=== PATIENT | female | born 1970 | race Hispanic/Latino ===

== ENCOUNTER 2018-04-21 14:10 | Emergency (ER) | payer MEDICAID, OTHER ==
[2018-04-21] MEDS ORDERED: IBUPROFEN 400 MG TABLET ONE (14:18)
[2018-04-21 15:20] LABS: RAPID GROUP A STREP NEGATIVE (NEGATIVE)
== END 2018-04-21 15:37 | disposition home or self-care (01) ==
LOC: EDH 14:10
DX: J10.1 Influenza due to other identified influenza virus with other respiratory manifestations (principal); R50.9 Fever, unspecified; Z98.890 Other specified postprocedural states
CPT/HCPCS: 71045; 87804; 87880

== ENCOUNTER 2019-10-05 12:27 | Emergency (ER) | payer OTHER, SELFPAY ==
[2019-10-05] MEDS ORDERED: IBUPROFEN 600 MG TABLET ONE (13:57)
[2019-10-05 13:58] LABS: APPEARANCE,URINE Clear (CLEAR); BILIRUBIN,URINE Negative (NEGATIVE); COLOR,URINE Yellow (YELLOW); GLUCOSE, URINE (UA) Negative (NEGATIVE); KETONES,URINE 15 mg/dL (NEGATIVE); LEUKOCYTE ESTERASE ,URINE Negative (NEGATIVE); NITRATE,URINE Negative (NEGATIVE); OCCULT BLOOD,URINE Negative (NEGATIVE); PH,URINE 5.5 (5.0-8.0); PROTEIN,URINE Trace mg/dL (NEGATIVE)
[2019-10-05 14:01] LABS: BASOPHILS % (AUTO) 0.3 % (0.0-5.0); HEMATOCRIT 35.8 % (36-48); LYMPHOCYTES % (AUTO) 11.6 % (21.0-51.0); MEAN CORPUSCULAR HEMOGLOBIN 29.9 pg (27.0-33.0); MEAN CORPUSCULAR VOLUME 90.6 fL (79-99); MONOCYTES % (AUTO) 5.7 % (3.0-13.0); PLATELET COUNT (AUTO) 278 K/uL (130-400); RED BLOOD CELL COUNT(AUTO) 3.95 MIL/uL (4.00-5.50); RED CELL DISTRIBUTION WIDTH 14.2 % (11.0-15.5); WHITE BLOOD COUNT (AUTO) 6.9 K/uL (4.8-10.8)
[2019-10-05 14:02] LABS: HCG,QUAL RESULT NEGATIVE (NEGATIVE)
[2019-10-05 14:06] LABS: BACTERIA,URINE Rare /HPF (None Seen); MUCUS,URINE Moderate LPF (None Seen); RBC,URINE 0-1 /HPF (0-1); SQUAMOUS EPITHELIAL CELL,UR Few /HPF (0-2); WBC,URINE 0-1 /HPF (0-1)
[2019-10-05 14:06] LABS: CREATININE 0.9 mg/dL (0.5-1.5); POTASSIUM 3.3 mmol/L (3.5-5.1)
[2019-10-05 14:10] LABS: ALBUMIN 3.5 g/dL (3.5-5.0); BILIRUBIN,TOTAL 0.3 mg/dL (0.2-1.0); TOTAL PROTEIN, SERUM 8.1 g/dL (6.0-8.3)
[2019-10-18] MEDS ORDERED: DEXA6TAB PO (16:57)
[2019-10-18] MEDS ORDERED: APIX2.5T PO (16:57)
== END 2019-10-05 16:37 | disposition home or self-care (01) ==
LOC: EDH 12:27
DX: U07.1 COVID-19 (principal); R10.30 Lower abdominal pain, unspecified
CPT/HCPCS: 36415; 71045; 74176; 76856; 80053; 81001; 81025; 83690; 84484; 85025; 93005; 99285; U0003

== ENCOUNTER 2019-10-11 16:44 | Inpatient (IN) | payer OTHER, SELFPAY ==
[~2019-10-11] VITALS: Ht 152.4 cm; Wt 81.7 kg
[2019-10-11 17:20] LABS: BASOPHILS % (AUTO) 0.4 % (0.0-5.0); HEMATOCRIT 32.5 % (36-48); LYMPHOCYTES % (AUTO) 24.1 % (21.0-51.0); MEAN CORPUSCULAR HEMOGLOBIN 29.5 pg (27.0-33.0); MEAN CORPUSCULAR HGB CONC 33.5 g/dL (32.0-36.0); MEAN CORPUSCULAR VOLUME 88.1 fL (79-99); MONOCYTES % (AUTO) 6.1 % (3.0-13.0); NEUTROPHILS % (AUTO) 65.3 % (40.0-77.0); PLATELET COUNT (AUTO) 305 K/uL (130-400); RED BLOOD CELL COUNT(AUTO) 3.69 MIL/uL (4.00-5.50); RED CELL DISTRIBUTION WIDTH 14.1 % (11.0-15.5); WHITE BLOOD COUNT (AUTO) 5.1 K/uL (4.8-10.8)
[2019-10-11 17:34] LABS: INR 0.95 (0.85-1.15); PARTIAL THROMBOPLASTIN TIME 25.7 SEC (26.3-35.5); PROTHROMBIN TIME 10.3 SEC (9.6-11.6)
[2019-10-11 17:36] LABS: ALBUMIN 2.8 g/dL (3.5-5.0); BILIRUBIN,TOTAL 0.6 mg/dL (0.2-1.0); CREATININE 0.8 mg/dL (0.5-1.5); TOTAL PROTEIN, SERUM 7.4 g/dL (6.0-8.3)
[2019-10-11 17:46] LABS: B-TYPE NATRIURETIC PEPTIDE 5 pg/mL (0-100)
[2019-10-11] MEDS ORDERED: POTASSIUM BICARB/CIT AC 25 MEQ TABLET.EFF ONE (18:01)
[2019-10-11] MEDS ORDERED: POTASSIUM CHLORIDE 20 MEQ ERTAB PO ONE ×2 (18:10→23:16)
[2019-10-11] MEDS ORDERED: LEVOFLOXACIN 500 MG/D5W 100 ML 100 ML ONE (18:29)
[2019-10-11] MEDS ORDERED: ONDANSETRON HCL 4 MG/2 ML VIAL IV PRN (19:30)
[2019-10-11] MEDS ORDERED: ERGOCALCIFEROL (VITAMIN D2) 50,000 UNIT CAPSULE PO ONE (19:30)
[2019-10-11] MEDS ORDERED: CEFTRIAXONE SODIUM 1 GM IVP SCH (19:30)
[2019-10-11] MEDS ORDERED: DOXYCYCLINE 100MG+NS 250ML IV SCH (19:30)
[2019-10-11] MEDS ORDERED: LACTULOSE 20 GM/30 ML UDCUP PO PRN (19:30)
[2019-10-11] MEDS ORDERED: METHYLPREDNISOLONE SOD SUCC 40MG/ML 1ML ONE (19:53)
[2019-10-11] MEDS ORDERED: ERGOCALCIFEROL (VITAMIN D2) 50,000 UNIT CAPSULE ONE (19:53)
[2019-10-11] MEDS ORDERED: DOXYCYCLINE 100MG+NS 250ML 250 ML IV ONE (19:54)
[2019-10-11] MEDS ORDERED: CEFTRIAXONE SODIUM 1 GM ONE (19:54)
[2019-10-11] MEDS ORDERED: ACETYLCYSTEINE 600 MG CAPSULE ONE (19:54)
[2019-10-11] MEDS: METHYLPREDNISOLONE SOD SUCC 40MG/ML 1ML IVP SCH (21:00)
[2019-10-11] MEDS: ACETYLCYSTEINE 600 MG CAPSULE PO SCH (21:00)
[2019-10-12] VITALS (7 sets, daily range): BP systolic 133–170; BP diastolic 85–90
[2019-10-12] MEDS ORDERED: DOXY100T2 PO (07:02)
[2019-10-12] MEDS: ASCORBIC ACID 500 MG TAB PO SCH (08:13)
[2019-10-12] MEDS: ACETYLCYSTEINE 600 MG CAPSULE PO SCH ×2 (08:14→21:10)
[2019-10-12] MEDS: METHYLPREDNISOLONE SOD SUCC 40MG/ML 1ML IVP SCH ×3 (08:14→21:11)
[2019-10-12] MEDS: ENOXAPARIN SODIUM 40 MG/0.4 ML SYRINGE SQ SCH (08:15)
[2019-10-12] MEDS ORDERED: DOXYCYCLINE 100MG+NS 250ML IV SCH (09:00)
[2019-10-12] MEDS: CEFTRIAXONE SODIUM 1 GM IVP SCH ×2 (09:40→21:11)
[2019-10-12] MEDS: DOXYCYCLINE 100MG+NS 250ML 250 ML IV SCH ×2 (09:40→21:11)
--- NOTE | 2019-10-12 09:44 | NUR ---
CHART CHECK COMPLETED Pt IS A Y.O. FEMALE ADMITTED SECONDARY TO ACUTE HYPOXIC RESPIRATORY FAILURE DUE TO SARS . Pt HAS A PAST MEDICAL HISTORY SIGNIFICANT FOR . Pt CURRENTLY ON REGULAR TEXTURE,THIN LIQUID DIET (HEART HEALTHY). PLEASE REQUEST FORMAL SKILLED SPEECH/SWALLOW EVALUATION IF Pt PRESENTS WITH +S/S OF ASPIRATION SUCH COUGH RESPONSE, THROAT CLEAR, OR WET VOCAL QUALITY DURING P.O. Addendum: 10/12/19 at 0957 by RUPERT FORTUNE, [facility] Amended: Links added.
[2019-10-12] MEDS: ZINC SULFATE 220 CAPSULE PO SCH (11:46)
--- NOTE | 2019-10-12 13:21 | NUR ---
DC PLAN CALLED ROOM PATIENT IN COVID UNIT. NO ANSWER. CALLED NEXT OF KIN ON FACE SHEET SISTER LOYDA PATIENT LIVES WITH SPOUSE. INDEPENDENT USES A CANE EVERY SO OFTEN. GOES TO [facility] FOR MD AND MDS. FEELS PATIENT CAN RETURN HOME. SAID PATIENTS SON IS POSITIVE FOR COVID. DID NOT WANT TO GIVE SPOUSE PHONE NUMBER SAID SHE DOES HAVE IT IF NEEDED. . Addendum: 10/12/19 at 1328 by GOLD LONG RN CM Amended: Links added.
[2019-10-13 03:49] VITALS: BP 128/80
[2019-10-13 05:35] LABS: HEMATOCRIT 33.3 % (36-48); MEAN CORPUSCULAR HEMOGLOBIN 29.1 pg (27.0-33.0); MEAN CORPUSCULAR VOLUME 88.1 fL (79-99); RED BLOOD CELL COUNT(AUTO) 3.78 MIL/uL (4.00-5.50); RED CELL DISTRIBUTION WIDTH 13.7 % (11.0-15.5); WHITE BLOOD COUNT (AUTO) 9.6 K/uL (4.8-10.8)
[2019-10-13 05:50] LABS: CREATININE 0.9 mg/dL (0.5-1.5); POTASSIUM 3.8 mmol/L (3.5-5.1)
[2019-10-13 08:00] VITALS: BP 149/85
[2019-10-13] MEDS: ASCORBIC ACID 500 MG TAB PO SCH (08:54)
[2019-10-13] MEDS: CEFTRIAXONE SODIUM 1 GM IVP SCH ×2 (08:54→20:55)
[2019-10-13] MEDS: METHYLPREDNISOLONE SOD SUCC 40MG/ML 1ML IVP SCH ×3 (08:54→20:55)
[2019-10-13] MEDS: ACETYLCYSTEINE 600 MG CAPSULE PO SCH ×2 (08:54→20:55)
[2019-10-13] MEDS: ENOXAPARIN SODIUM 40 MG/0.4 ML SYRINGE SQ SCH (08:56)
[2019-10-13] MEDS: DOXYCYCLINE 100MG+NS 250ML 250 ML IV SCH ×2 (08:56→20:54)
[2019-10-13 11:00] VITALS: BP 156/81
[2019-10-13] MEDS: ZINC SULFATE 220 CAPSULE PO SCH (12:10)
[2019-10-13 16:00] VITALS: BP 130/79
[2019-10-13 20:10] VITALS: BP 133/80
[2019-10-13 23:25] VITALS: BP 167/90
[2019-10-14 03:42] VITALS: BP 156/86
[2019-10-14 05:27] LABS: BASOPHILS % (AUTO) 0.7 % (0.0-5.0); HEMATOCRIT 33.2 % (36-48); LYMPHOCYTES % (AUTO) 9.1 % (21.0-51.0); MEAN CORPUSCULAR HGB CONC 32.5 g/dL (32.0-36.0); MONOCYTES % (AUTO) 4.4 % (3.0-13.0); NEUTROPHILS % (AUTO) 72.3 % (40.0-77.0); PLATELET COUNT (AUTO) 443 K/uL (130-400); RED BLOOD CELL COUNT(AUTO) 3.73 MIL/uL (4.00-5.50); RED CELL DISTRIBUTION WIDTH 13.8 % (11.0-15.5); WHITE BLOOD COUNT (AUTO) 11.3 K/uL (4.8-10.8)
[2019-10-14 05:58] LABS: CREATININE 0.7 mg/dL (0.5-1.5); POTASSIUM 4.4 mmol/L (3.5-5.1)
[2019-10-14] MEDS: CEFTRIAXONE SODIUM 1 GM IVP SCH ×2 (08:17→21:03)
[2019-10-14] MEDS: ACETYLCYSTEINE 600 MG CAPSULE PO SCH ×2 (08:18→21:03)
[2019-10-14] MEDS: ASCORBIC ACID 500 MG TAB PO SCH (08:18)
[2019-10-14] MEDS: ENOXAPARIN SODIUM 40 MG/0.4 ML SYRINGE SQ SCH (08:18)
[2019-10-14] MEDS: DOXYCYCLINE 100MG+NS 250ML 250 ML IV SCH ×2 (08:18→21:03)
[2019-10-14] MEDS: METHYLPREDNISOLONE SOD SUCC 40MG/ML 1ML IVP SCH (08:18)
[2019-10-14 09:19] VITALS: BP 158/89
[2019-10-14] MEDS: ZINC SULFATE 220 CAPSULE PO SCH (11:49)
[2019-10-14 12:23] VITALS: BP 155/94
[2019-10-14 15:55] VITALS: BP 134/87
[2019-10-14 21:20] VITALS: BP 149/82
[2019-10-14 23:34] VITALS: BP 125/71
[2019-10-15 05:03] VITALS: BP 140/89
[2019-10-15] MEDS: ACETAMINOPHEN 325 MG TAB PO PRN (06:17)
[2019-10-15 07:47] VITALS: BP 119/72
[2019-10-15 07:53] VITALS: BP 112/63
[2019-10-15] MEDS: DEXAMETHASONE SOD PHOSPHATE 4 MG/ML 1ML VIAL IVP SCH (08:28)
[2019-10-15] MEDS: CEFTRIAXONE SODIUM 1 GM IVP SCH ×2 (08:28→21:14)
[2019-10-15] MEDS: ASCORBIC ACID 500 MG TAB PO SCH (08:29)
[2019-10-15] MEDS: ACETYLCYSTEINE 600 MG CAPSULE PO SCH ×2 (08:29→21:14)
[2019-10-15] MEDS: DOXYCYCLINE 100MG+NS 250ML 250 ML IV SCH (08:29)
[2019-10-15] MEDS: ENOXAPARIN SODIUM 40 MG/0.4 ML SYRINGE SQ SCH (08:30)
[2019-10-15 11:29] VITALS: BP 97/64
[2019-10-15] MEDS: ZINC SULFATE 220 CAPSULE PO SCH (12:21)
[2019-10-15 15:37] VITALS: BP 121/84
[2019-10-15 20:54] VITALS: BP 133/83
[2019-10-15] MEDS: DOXYCYCLINE HYCLATE 100 MG TABLET PO SCH (21:14)
[2019-10-16 00:13] VITALS: BP 161/82
[2019-10-16 06:36] VITALS: BP 136/74
[2019-10-16 08:00] VITALS: BP 110/65
[2019-10-16] MEDS: DEXAMETHASONE SOD PHOSPHATE 4 MG/ML 1ML VIAL IVP SCH (08:15)
[2019-10-16] MEDS: ACETYLCYSTEINE 600 MG CAPSULE PO SCH ×2 (08:15→20:09)
[2019-10-16] MEDS: CEFTRIAXONE SODIUM 1 GM IVP SCH ×2 (08:15→20:09)
[2019-10-16] MEDS: DOXYCYCLINE HYCLATE 100 MG TABLET PO SCH ×2 (08:15→20:09)
[2019-10-16] MEDS: ASCORBIC ACID 500 MG TAB PO SCH (08:15)
[2019-10-16] MEDS: ENOXAPARIN SODIUM 40 MG/0.4 ML SYRINGE SQ SCH (08:16)
--- NOTE | 2019-10-16 08:30 | NUR ---
AM ASSESSMENT PT AWAKE, ALERT, AND ORIENTED. PT DENIES SOB, DENIES CHEST PAIN. O2 PER NC AT 2 LITERS. OOB TO CHAIR AND BR WITH SUPERVISION. TELEMETRY MONITORING, CALL LIGHT WITHIN REACH.
[2019-10-16 11:44] VITALS: BP 119/81
[2019-10-16] MEDS: ZINC SULFATE 220 CAPSULE PO SCH (13:17)
[2019-10-16] MEDS: ACETAMINOPHEN 325 MG TAB PO PRN (17:31)
[2019-10-16 21:25] VITALS: BP 146/89
[2019-10-17 00:21] VITALS: BP 124/79
[2019-10-17 04:19] VITALS: BP 167/93
--- NOTE | 2019-10-17 06:33 | NUR ---
assessment patient is alert and oriented times 4. no complaints of any pain. patient is sating 95% on 2 liters nasal canula. Pt. recieved 1 unit of plasma last night.
[2019-10-17 07:00] VITALS: BP 127/86
[2019-10-17] MEDS: ASCORBIC ACID 500 MG TAB PO SCH (08:19)
[2019-10-17] MEDS: ACETYLCYSTEINE 600 MG CAPSULE PO SCH ×2 (08:19→20:14)
[2019-10-17] MEDS: ENOXAPARIN SODIUM 40 MG/0.4 ML SYRINGE SQ SCH (08:19)
[2019-10-17] MEDS: ZINC SULFATE 220 CAPSULE PO SCH (08:19)
[2019-10-17] MEDS: DOXYCYCLINE HYCLATE 100 MG TABLET PO SCH ×2 (08:19→20:14)
[2019-10-17] MEDS: DEXAMETHASONE SOD PHOSPHATE 4 MG/ML 1ML VIAL IVP SCH (08:20)
[2019-10-17] MEDS: CEFTRIAXONE SODIUM 1 GM IVP SCH ×2 (08:20→20:13)
[2019-10-17] MEDS ORDERED: PHARMACY COMMUNICATION MISC SCH (10:30)
[2019-10-17 10:38] LABS: BASOPHILS % (AUTO) 0.3 % (0.0-5.0); HEMATOCRIT 34.5 % (36-48); LYMPHOCYTES % (AUTO) 8.2 % (21.0-51.0); MEAN CORPUSCULAR HEMOGLOBIN 29.5 pg (27.0-33.0); MEAN CORPUSCULAR VOLUME 89.4 fL (79-99); MONOCYTES % (AUTO) 4.4 % (3.0-13.0); NEUTROPHILS % (AUTO) 79.4 % (40.0-77.0); PLATELET COUNT (AUTO) 502 K/uL (130-400); RED BLOOD CELL COUNT(AUTO) 3.86 MIL/uL (4.00-5.50); RED CELL DISTRIBUTION WIDTH 13.9 % (11.0-15.5); WHITE BLOOD COUNT (AUTO) 12.3 K/uL (4.8-10.8)
[2019-10-17 10:51] LABS: CREATININE 0.8 mg/dL (0.5-1.5); POTASSIUM 4.3 mmol/L (3.5-5.1)
[2019-10-17 10:56] LABS: ALBUMIN 3.4 g/dL (3.5-5.0); BILIRUBIN,TOTAL 0.3 mg/dL (0.2-1.0); CRP QUANTITATIVE 4.4 mg/L (0.00-9.0); TOTAL PROTEIN, SERUM 7.6 g/dL (6.0-8.3)
[2019-10-17 11:00] VITALS: BP 119/83
[2019-10-17] MEDS ORDERED: COMPOUND IV REFRIGERATED 1 EACH IVSOLN MISC PRN (13:00)
[2019-10-17] MEDS ORDERED: REMDESIVIR (EUA) 520 200 MG in SODIUM CHLORIDE 0.9% 250 ML IV ONE (13:00)
[2019-10-17] MEDS ORDERED: REMDESIVIR (EUA) 520 100 MG VIAL IV ONE (15:33)
[2019-10-17 16:00] VITALS: BP 126/79
[2019-10-17 20:00] VITALS: BP 116/80
[2019-10-17] MEDS: ACETAMINOPHEN 325 MG TAB PO PRN (23:46)
[2019-10-18] VITALS: BP 121/78
[2019-10-18 04:00] VITALS: BP 129/88
[2019-10-18 05:50] LABS: CREATININE 0.8 mg/dL (0.5-1.5)
[2019-10-18] MEDS ORDERED: PHARMACY COMMUNICATION MISC SCH (06:00)
--- NOTE | 2019-10-18 06:19 | NUR ---
assessment pt. is alert and oriented times 4 no complaints of any pain. patient is sating 100% on room air. vitals stable will continue to monitor. pt. took a shower this morning
[2019-10-18 08:00] VITALS: BP 127/80
[2019-10-18] MEDS: ACETYLCYSTEINE 600 MG CAPSULE PO SCH (09:08)
[2019-10-18] MEDS: DOXYCYCLINE HYCLATE 100 MG TABLET PO SCH (09:08)
[2019-10-18] MEDS: ASCORBIC ACID 500 MG TAB PO SCH (09:08)
[2019-10-18] MEDS: DEXAMETHASONE SOD PHOSPHATE 4 MG/ML 1ML VIAL IVP SCH (09:08)
[2019-10-18] MEDS: ENOXAPARIN SODIUM 40 MG/0.4 ML SYRINGE SQ SCH (09:08)
[2019-10-18] MEDS: CEFTRIAXONE SODIUM 1 GM IVP SCH (09:14)
[2019-10-18] MEDS ORDERED: MAG HYDROX/AL HYDROX/SIMETH ES 30 ML SUSP UDCUP PO PRN (11:15)
[2019-10-18] MEDS ORDERED: MAG HYDROX/AL HYDROX/SIMETH ES 30 ML SUSP UDCUP ONE (11:19)
[2019-10-18] MEDS: ZINC SULFATE 220 CAPSULE PO SCH (11:20)
[2019-10-18] MEDS: ACETAMINOPHEN 325 MG TAB PO PRN (11:21)
[2019-10-18 11:30] VITALS: BP 134/70
[2019-10-18] MEDS ORDERED: REMDESIVIR (EUA) 520 100 MG in SODIUM CHLORIDE 0.9% 250 ML IV SCH (13:00)
[2019-10-18] MEDS ORDERED: APIX2.5T PO ×2 (16:57)
[2019-10-18] MEDS ORDERED: DEXA6TAB PO ×2 (16:57)
[2019-10-19] MEDS ORDERED: REMDESIVIR (EUA) 520 100 MG in SODIUM CHLORIDE 0.9% 250 ML IV SCH (13:00)
== END 2019-10-18 19:15 | disposition home or self-care (01) | DRG 177 ==
LOC: EDH 16:44 → EDHIP 16:45 → 2DH 10-12 00:46 → 4BH 10-16 15:35
PROVIDERS: ADMIT Internal Medicine; ATTEND Internal Medicine
PROC: XW13325 Transfusion of Convalescent Plasma (Nonautologous) into Peripheral Vein, Percutaneous Approach, New Technology Group 5 (ICD-10-PCS; principal; 2019-10-11)
PROC: XW033E5 Introduction of Remdesivir Anti-infective into Peripheral Vein, Percutaneous Approach, New Technology Group 5 (ICD-10-PCS; 2019-10-11)
DX: U07.1 COVID-19 (principal); J12.89 Other viral pneumonia; J96.01 Acute respiratory failure with hypoxia; E87.6 Hypokalemia; D53.9 Nutritional anemia, unspecified
CPT/HCPCS: 36415; 36430; 71045; 80048; 80053; 82550; 82728; 83615; 83880; 84484; 85025; 85027; 85378; 85610; 85730; 86140; 86850; 86900; 86901; 86927; 87040; 93005; 99291; G0378; J0696; J1100; J1650; J1956; J2920; J3490; J7050

== ENCOUNTER 2019-10-24 16:08 | Emergency (ER) | payer OTHER, SELFPAY ==
[~2019-10-24 16:08] MED LIST: APIX2.5T PO; DEXA6TAB PO; DOXY100T2 PO
== END 2019-10-24 17:00 | disposition home or self-care (01) ==
LOC: EDH 16:08
DX: F41.1 Generalized anxiety disorder (principal); Z98.890 Other specified postprocedural states
CPT/HCPCS: 99281

== ENCOUNTER 2020-02-09 21:25 | Emergency (ER) | payer SELFPAY ==
[~2020-02-09 21:25] MED LIST changes: -DOXY100T2 PO
[2020-02-09 21:59] LABS: BASOPHILS % (AUTO) 0.8 % (0.0-5.0); EOSINOPHILS % (AUTO) 0.8 % (0.0-8.0); HEMATOCRIT 33.4 % (36-48); LYMPHOCYTES % (AUTO) 35.8 % (21.0-51.0); MEAN CORPUSCULAR HEMOGLOBIN 30.9 pg (27.0-33.0); MEAN CORPUSCULAR HGB CONC 34.1 g/dL (32.0-36.0); MEAN CORPUSCULAR VOLUME 90.5 fL (79-99); MONOCYTES % (AUTO) 9.7 % (3.0-13.0); NEUTROPHILS % (AUTO) 52.3 % (40.0-77.0); PLATELET COUNT (AUTO) 306 K/uL (130-400); RED BLOOD CELL COUNT(AUTO) 3.69 MIL/uL (4.00-5.50); RED CELL DISTRIBUTION WIDTH 13.4 % (11.0-15.5); WHITE BLOOD COUNT (AUTO) 7.2 K/uL (4.8-10.8)
[2020-02-09 22:01] LABS: APPEARANCE,URINE Clear (CLEAR); BILIRUBIN,URINE Negative (NEGATIVE); COLOR,URINE Yellow (YELLOW); GLUCOSE, URINE (UA) Negative (NEGATIVE); KETONES,URINE Negative (NEGATIVE); LEUKOCYTE ESTERASE ,URINE Small (NEGATIVE); NITRATE,URINE Negative (NEGATIVE); OCCULT BLOOD,URINE Negative (NEGATIVE); PROTEIN,URINE Negative (NEGATIVE)
[2020-02-09 22:05] LABS: ABG BASE EXCESS 0.1 mmol/L (-2.0-3.0); ABG HCO3 24.2 mmol/L (21.0-28.0); ABG OXYGEN SATURATION 96.9 % (95.0-99.0); ABG PCO2 38 mmHg (32-45)
[2020-02-09 22:11] LABS: INR 0.89 (0.85-1.15); PARTIAL THROMBOPLASTIN TIME 22.7 SEC (26.3-35.5); PROTHROMBIN TIME 9.7 SEC (9.6-11.6)
[2020-02-09] MEDS ORDERED: DEXAMETHASONE SOD PHOSPHATE 10MG/ML 1ML VIAL ONE (22:11)
[2020-02-09] MEDS ORDERED: CEFTRIAXONE SODIUM 1 GM ONE (22:11)
[2020-02-09] MEDS ORDERED: AZITHROMYCIN 250 MG TABLET PO ONE (22:12)
[2020-02-09] MEDS ORDERED: ACETAMINOPHEN-CODEINE 300/30MG TAB ONE (22:12)
[2020-02-09 22:17] LABS: CREATININE 0.9 mg/dL (0.5-1.5); POTASSIUM 3.5 mmol/L (3.5-5.1)
[2020-02-09 22:19] LABS: BACTERIA,URINE Few /HPF (None Seen); MUCUS,URINE Rare LPF (None Seen); RBC,URINE 0-1 /HPF (0-1); SQUAMOUS EPITHELIAL CELL,UR Few /HPF (0-2)
[2020-02-09 22:22] LABS: ALBUMIN 3.6 g/dL (3.5-5.0); BILIRUBIN,TOTAL 0.4 mg/dL (0.2-1.0); TOTAL PROTEIN, SERUM 7.5 g/dL (6.0-8.3)
[2020-02-09] MEDS ORDERED: ALBUTEROL INHALER 90MCG/INH IH ONE (22:42)
[2020-02-09] MEDS ORDERED: BENZONATATE 100 MG CAPSULE PO ONE (22:42)
[2020-02-09] MEDS ORDERED: IOHEXOL-350 75 ML VIAL IV ONE (23:05)
== END 2020-02-10 00:10 | disposition home or self-care (01) ==
LOC: EDH 21:25
DX: J39.3 Upper respiratory tract hypersensitivity reaction, site unspecified (principal); J12.9 Viral pneumonia, unspecified; Z20.828 Contact with and (suspected) exposure to other viral communicable diseases; I10 Essential (primary) hypertension; K21.9 Gastro-esophageal reflux disease without esophagitis; Z98.890 Other specified postprocedural states
CPT/HCPCS: 36415; 36600; 71045; 71275; 80053; 81001; 82803; 83605; 84484; 85025; 85378; 85610; 85730; 87426; 93005; 96374; 96375; 99285; J0696; J1100; Q9967; U0003

== ENCOUNTER 2020-04-21 20:15 | Emergency (ER) | payer SELFPAY ==
[2020-04-21] MEDS ORDERED: LORAZEPAM 2 MG/ML 1 ML VIAL ONE (20:31)
[2020-04-21 20:34] LABS: BASOPHILS % (AUTO) 0.7 % (0.0-5.0); EOSINOPHILS % (AUTO) 0.6 % (0.0-8.0); HEMATOCRIT 36.2 % (36-48); LYMPHOCYTES % (AUTO) 24.6 % (21.0-51.0); MEAN CORPUSCULAR HEMOGLOBIN 30.4 pg (27.0-33.0); MEAN CORPUSCULAR HGB CONC 33.7 g/dL (32.0-36.0); MEAN CORPUSCULAR VOLUME 90.3 fL (79-99); MONOCYTES % (AUTO) 5.9 % (3.0-13.0); NEUTROPHILS % (AUTO) 67.7 % (40.0-77.0); PLATELET COUNT (AUTO) 323 K/uL (130-400); RED BLOOD CELL COUNT(AUTO) 4.01 MIL/uL (4.00-5.50); RED CELL DISTRIBUTION WIDTH 13.2 % (11.0-15.5); WHITE BLOOD COUNT (AUTO) 10.7 K/uL (4.8-10.8)
[2020-04-21 20:49] LABS: POTASSIUM 3.7 mmol/L (3.5-5.1)
[2020-04-21 20:59] LABS: ALBUMIN 3.6 g/dL (3.5-5.0); BILIRUBIN,TOTAL 0.3 mg/dL (0.2-1.0); TOTAL PROTEIN, SERUM 7.8 g/dL (6.0-8.3)
== END 2020-04-21 21:33 | disposition home or self-care (01) ==
LOC: EDH 20:15
DX: I10 Essential (primary) hypertension (principal); R00.0 Tachycardia, unspecified; F41.9 Anxiety disorder, unspecified; K21.9 Gastro-esophageal reflux disease without esophagitis; Z98.890 Other specified postprocedural states
CPT/HCPCS: 36415; 71045; 80053; 84484; 85025; 93005; 96374; 99285; J2060

== ENCOUNTER 2020-11-01 01:38 | Observation (INO) | payer OTHER ==
[2020-11-01] VITALS (10 sets, daily range): BP systolic 103–137; BP diastolic 58–82
[2020-11-01 02:42] LABS: ALBUMIN 3.9 g/dL (3.5-5.0); BILIRUBIN,TOTAL 0.7 mg/dL (0.2-1.0); CREATININE 1.1 mg/dL (0.5-1.5); POTASSIUM 3.5 mmol/L (3.5-5.1); TOTAL PROTEIN, SERUM 8.1 g/dL (6.0-8.3)
[2020-11-01 02:47] LABS: BASOPHILS % (AUTO) 0.5 % (0.0-5.0); EOSINOPHILS % (AUTO) 0.4 % (0.0-8.0); HEMATOCRIT 37.7 % (36-48); LYMPHOCYTES % (AUTO) 10.8 % (21.0-51.0); MEAN CORPUSCULAR HEMOGLOBIN 32.8 pg (27.0-33.0); MEAN CORPUSCULAR HGB CONC 34.7 g/dL (32.0-36.0); MEAN CORPUSCULAR VOLUME 94.3 fL (79-99); MONOCYTES % (AUTO) 5.3 % (3.0-13.0); NEUTROPHILS % (AUTO) 82.4 % (40.0-77.0); PLATELET COUNT (AUTO) 371 K/uL (130-400); RED CELL DISTRIBUTION WIDTH 12.3 % (11.0-15.5); WHITE BLOOD COUNT (AUTO) 14.3 K/uL (4.8-10.8)
[2020-11-01 03:02] LABS: APPEARANCE,URINE Cloudy (CLEAR); BILIRUBIN,URINE Small (NEGATIVE); COLOR,URINE Dark Yellow (YELLOW); GLUCOSE, URINE (UA) Negative (NEGATIVE); KETONES,URINE Trace mg/dL (NEGATIVE); LEUKOCYTE ESTERASE ,URINE Trace (NEGATIVE); NITRATE,URINE Negative (NEGATIVE); OCCULT BLOOD,URINE Trace (NEGATIVE); PH,URINE 5.5 (5.0-8.0); PROTEIN,URINE POS 1+ mg/dL (NEGATIVE)
[2020-11-01 03:05] LABS: BACTERIA,URINE Few /HPF (None Seen); MUCUS,URINE Few LPF (None Seen)
[2020-11-01] MEDS ORDERED: LACTATED RINGERS 1000ML 1,000 ML IV ONE ×2 (03:14→07:30)
[2020-11-01] MEDS ORDERED: PANTOPRAZOLE 40 MG/VIAL IVP SCH ×2 (04:00→07:00)
[2020-11-01] MEDS ORDERED: LACTATED RINGERS 1000ML IV SCH ×2 (04:00)
[2020-11-01] MEDS ORDERED: IOHEXOL 350 MG/ML 100ML INFUS..BTL IV ONE (04:10)
[2020-11-01] MEDS ORDERED: ONDANSETRON 4MG INJ IVP ONE (04:30)
[2020-11-01] MEDS ORDERED: MORPHINE 5 MG/ML VIAL (5MG OR GREATER DOSE) IV ONE ×2 (04:30→07:00)
[2020-11-01 04:31] LABS: CRP QUANTITATIVE 28.5 mg/L (0.00-9.0); MAGNESIUM 1.6 mg/dL (1.80-2.40)
[2020-11-01] MEDS ORDERED: PROCHLORPERAZINE 10MG/2ML INJ IV ONE (07:00)
[2020-11-01] MEDS ORDERED: IPRATROPIUM/ALBUTEROL SULFATE 3 ML SOLUTION IH ONE (07:00)
[2020-11-01] MEDS ORDERED: PROCHLORPERAZINE 10MG/2ML INJ ONE (09:10)
[2020-11-01] MEDS ORDERED: MAGNESIUM 2GM PREMIX 50ML 50 ML IV SCH (11:00)
[2020-11-01] MEDS ORDERED: KCL 20 MEQ ERTAB PO ONE (11:00)
[2020-11-01] MEDS ORDERED: LOPERAMIDE HCL 2 MG CAP PO ONE ×2 (11:09→11:30)
[2020-11-01] MEDS ORDERED: ACETAMINOPHEN WITH CODEINE 1 TAB TAB PO PRN (11:30)
[2020-11-01] MEDS ORDERED: ACETAMINOPHEN 325 MG TAB PO PRN (11:30)
[2020-11-01] MEDS ORDERED: ONDANSETRON 4MG INJ IV PRN (11:30)
[2020-11-01] MEDS ORDERED: DIPHENHYDRAMINE HCL 25 MG CAPSULE PO PRN (11:30)
[2020-11-01] MEDS ORDERED: LACTATED RINGERS 1000ML 1,000 ML IV SCH (11:30)
[2020-11-01 13:51] LABS: BASOPHILS % (AUTO) 0.4 % (0.0-5.0); EOSINOPHILS % (AUTO) 0.8 % (0.0-8.0); HEMATOCRIT 32.7 % (36-48); LYMPHOCYTES % (AUTO) 18.9 % (21.0-51.0); MEAN CORPUSCULAR HEMOGLOBIN 31.9 pg (27.0-33.0); MEAN CORPUSCULAR HGB CONC 33.9 g/dL (32.0-36.0); NEUTROPHILS % (AUTO) 70.5 % (40.0-77.0); PLATELET COUNT (AUTO) 239 K/uL (130-400); RED BLOOD CELL COUNT(AUTO) 3.48 MIL/uL (4.00-5.50); RED CELL DISTRIBUTION WIDTH 12.3 % (11.0-15.5); WHITE BLOOD COUNT (AUTO) 7.2 K/uL (4.8-10.8)
[2020-11-01 13:58] LABS: POTASSIUM 3.7 mmol/L (3.5-5.1)
[2020-11-01 14:12] LABS: CREATININE 0.8 mg/dL (0.5-1.5)
[2020-11-01] MEDS ORDERED: FAMOTIDINE 20MG TAB PO SCH (21:00)
== END 2020-11-01 18:15 | disposition home or self-care (01) ==
LOC: EDH 01:38 → EDHIP 01:39 → UNDOADMOB 11:09 → EDHIP 11:09 → 3CH 12:45
PROVIDERS: ADMIT Internal Medicine; ATTEND Internal Medicine
DX: A41.9 Sepsis, unspecified organism (principal); Z20.822 Contact with and (suspected) exposure to COVID-19; K52.9 Noninfective gastroenteritis and colitis, unspecified; E86.0 Dehydration; I10 Essential (primary) hypertension; N83.202 Unspecified ovarian cyst, left side; E83.42 Hypomagnesemia; D72.829 Elevated white blood cell count, unspecified; Z87.01 Personal history of pneumonia (recurrent); Z98.891 History of uterine scar from previous surgery; Z90.49 Acquired absence of other specified parts of digestive tract
CPT/HCPCS: 36415; 71045; 74177; 80053; 81001; 82948 ×2; 83605 ×2; 83690; 83735 ×2; 84484; 85025 ×2; 85378; 86140; 86677; 87040 ×2; 87635; 87880; 93005; 96361; 96374; 96375; 96376; 99285; C9113 ×2; C9803; G0378 ×7; J0780; J2270; J2405; J3475; J7120; Q9967; 80048

== ENCOUNTER 2021-07-15 16:49 | Emergency (ER) | payer OTHER ==
[~2021-07-15 16:49] MED LIST changes: +ALBU8.5H8 IH; +GUAI10LI12 PO; +IBUP-2070 PO; +PSEU120T62 PO
[2021-07-15 17:19] LABS: BASOPHILS % (AUTO) 0.8 % (0.0-5.0); EOSINOPHILS % (AUTO) 0.7 % (0.0-8.0); HEMATOCRIT 38.4 % (36-48); LYMPHOCYTES % (AUTO) 34.9 % (21.0-51.0); MEAN CORPUSCULAR HEMOGLOBIN 33.1 pg (27.0-33.0); MEAN CORPUSCULAR HGB CONC 34.1 g/dL (32.0-36.0); NEUTROPHILS % (AUTO) 54.3 % (40.0-77.0); PLATELET COUNT (AUTO) 277 K/uL (130-400); RED BLOOD CELL COUNT(AUTO) 3.96 MIL/uL (4.00-5.50); WHITE BLOOD COUNT (AUTO) 7.2 K/uL (4.8-10.8)
[2021-07-15 17:39] LABS: POTASSIUM 3.9 mmol/L (3.5-5.1)
[2021-07-15 17:49] LABS: ALBUMIN 3.7 g/dL (3.5-5.0); BILIRUBIN,TOTAL 0.7 mg/dL (0.2-1.0); TOTAL PROTEIN, SERUM 7.4 g/dL (6.0-8.3)
[2021-07-15 17:59] VITALS: BP 124/74
[2021-07-15 18:25] LABS: APPEARANCE,URINE Clear (CLEAR); BILIRUBIN,URINE Negative (NEGATIVE); COLOR,URINE Yellow (YELLOW); GLUCOSE, URINE (UA) Negative (NEGATIVE); KETONES,URINE Negative (NEGATIVE); LEUKOCYTE ESTERASE ,URINE Negative (NEGATIVE); NITRATE,URINE Negative (NEGATIVE); OCCULT BLOOD,URINE Moderate (NEGATIVE); PROTEIN,URINE Negative (NEGATIVE)
[2021-07-15] MEDS ORDERED: KETOROLAC 30MG VIAL (30MG/ML) IVP ONE (18:30)
[2021-07-15] MEDS ORDERED: ONDANSETRON 4MG INJ IVP ONE (18:30)
[2021-07-15 18:53] LABS: RBC,URINE 0-1 /HPF (0-1); WBC,URINE 0-1 /HPF (0-1)
[2021-07-15 18:54] LABS: BACTERIA,URINE Few /HPF (None Seen); MUCUS,URINE Few LPF (None Seen); SQUAMOUS EPITHELIAL CELL,UR Moderate /HPF (0-2)
[2021-07-15] MEDS ORDERED: IOHEXOL-350 75 ML VIAL IV ONE (19:51)
[2021-07-15] MEDS ORDERED: OXYC-38 PO (21:07)
== END 2021-07-15 21:46 | disposition home or self-care (01) ==
LOC: EDH 16:49
DX: R10.11 Right upper quadrant pain (principal); R42 Dizziness and giddiness; R11.0 Nausea; K21.9 Gastro-esophageal reflux disease without esophagitis; I10 Essential (primary) hypertension; Z79.899 Other long term (current) drug therapy
CPT/HCPCS: 36415; 71045; 74177; 76705; 80053; 81001; 82550; 83690; 84484; 85025; 85378; 93005; 96374; 96375; 99285; J1885; J2405; Q9967

== ENCOUNTER 2022-09-19 10:57 | Emergency (ER) | payer OTHER ==
[~2022-09-19] VITALS: Ht 152.4 cm; Wt 63.5 kg
[~2022-09-19 10:57] MED LIST changes: -GUAI10LI12 PO; +GUAI10LI14 PO
[2022-09-19 11:22] LABS: APPEARANCE,URINE CLEAR (CLEAR); BILIRUBIN,URINE NEGATIVE (NEGATIVE); COLOR,URINE YELLOW (YELLOW); GLUCOSE, URINE (UA) NEGATIVE (NEGATIVE); KETONES,URINE NEGATIVE (NEGATIVE); LEUKOCYTE ESTERASE ,URINE NEGATIVE Leu/uL (NEGATIVE); NITRATE,URINE NEGATIVE (NEGATIVE); OCCULT BLOOD,URINE SMALL (NEGATIVE); PROTEIN,URINE 50 mg/dL (NEGATIVE); UROBILINOGEN,URINE 0.2 mg/dL (0.2-1.0)
[2022-09-19 11:23] LABS: HCG,QUALITATIVE URINE NEGATIVE (NEGATIVE)
[2022-09-19 11:26] LABS: MUCUS,URINE MANY LPF (None Seen); SQUAMOUS EPITHELIAL CELL,UR MOD /HPF (0-2); WBC,URINE 0-1 /HPF (0-1)
[2022-09-19 12:02] LABS: BASOPHILS % (AUTO) 0.3 % (0.0-5.0); HEMATOCRIT 35.6 % (36-48); LYMPHOCYTES % (AUTO) 7.7 % (21.0-51.0); MEAN CORPUSCULAR HEMOGLOBIN 31.8 pg (27.0-33.0); MEAN CORPUSCULAR HGB CONC 33.7 g/dL (32.0-36.0); MEAN CORPUSCULAR VOLUME 94.4 fL (79-99); MONOCYTES % (AUTO) 3.2 % (3.0-13.0); NEUTROPHILS % (AUTO) 88.5 % (40.0-77.0); PLATELET COUNT (AUTO) 242 K/uL (130-400); RED BLOOD CELL COUNT(AUTO) 3.77 MIL/uL (4.00-5.50); RED CELL DISTRIBUTION WIDTH 12.6 % (11.0-15.5); WHITE BLOOD COUNT (AUTO) 9.9 K/uL (4.8-10.8)
[2022-09-19 12:12] LABS: POTASSIUM 3.4 mmol/L (3.5-5.1)
[2022-09-19 12:16] LABS: ALBUMIN 3.5 g/dL (3.5-5.0); TOTAL PROTEIN, SERUM 7.5 g/dL (6.0-8.3)
[2022-09-19] MEDS ORDERED: POTASSIUM BICARB/CIT AC 25 MEQ TABLET.EFF PO ONE (12:30)
[2022-09-19] MEDS ORDERED: MORPHINE 4 MG SYG IVP ONE (13:00)
[2022-09-19] MEDS ORDERED: ONDANSETRON 4MG INJ IVP ONE (13:00)
[2022-09-19] MEDS ORDERED: 0.9%NACL 1000ML 1,000 ML IV ONE (13:00)
[2022-09-19] MEDS ORDERED: ACETAMINOPHEN 500 MG TABLET PO ONE (13:30)
[2022-09-19] MEDS ORDERED: LACT20PA6 PO (14:45)
[2022-09-19 15:30] VITALS: BP 100/53
== END 2022-09-19 16:05 | disposition home or self-care (01) ==
LOC: EDH 10:57
DX: K59.00 Constipation, unspecified (principal); R50.9 Fever, unspecified; B34.9 Viral infection, unspecified; I10 Essential (primary) hypertension; Z20.822 Contact with and (suspected) exposure to COVID-19; Z79.899 Other long term (current) drug therapy; Z98.890 Other specified postprocedural states
CPT/HCPCS: 99285; 74176; 96374; 87635; 96361; 96375; 82150; 80053; 83690; 85025; 87040 ×2; 87880; 87804 ×2; 83605; 81001; 81025; 36415; C9803; J7030; J2405; J2270